=== PATIENT | female | born 1980 | race Caucasian/White ===

== ENCOUNTER 2016-06-05 14:30 | Inpatient (IN) | payer OTHER ==
--- NOTE | ~2016-06-05 | HP ---
Unit #: [id number] #: [id number] Patient: KATERINE GOLDMAN [id number] [address] [place], [place] [address] [id number] I MR#: [id number] NAME: KATERINE GOLDMAN ROOM: 24850 Age: 35 Sex: F Admission Date: 06/05/2016 : 1980 Attending Physician: Ana Stokes M.D. HISTORY AND PHYSICAL CHIEF COMPLAINT Abdominal pain. HISTORY OF PRESENT ILLNESS The patient is a 35-year-old female with a questionable history of Crohn disease per the patient but no records, who presented to the emergency room complaining of abdominal pain. The patient had a similar presentation a few years ago with abdominal pain and GI bleed. The patient stated that patient has had abdominal pain, diarrhea, vomiting, and nausea for the last four days. The patient stated that patient has been vomiting bright red blood and coffee-ground blood associated with bright red-colored blood in the stool. The patient stated that patient has been feeling sick for the last four days. Patient had an upper endoscopy back in 2014 that showed minimal gastritis involving the antrum and no ulcers, AVM, or active bleeding. The patient is being admitted for the above reasons. Patient's hemoglobin is 12.6 and hemoglobin 37.5. Denies any fever, chills, palpitations, or dizziness. PAST MEDICAL HISTORY 1. History of migraines. 2. Questionable self-reported history of Crohn. 3. Depression. 4. Anxiety. 5. Posttraumatic stress disorder. PAST SURGICAL HISTORY 1. Hysterectomy. 2. Laparoscopy x2. HOME MEDICATIONS Tylenol and Phenergan. ALLERGIES ZOFRAN AND PROPOFOL. SOCIAL HISTORY Denies history of smoking cigarettes, alcohol, or any illicit drug abuse. FAMILY HISTORY Coronary artery disease and colon cancer. REVIEW OF SYSTEMS A 14-point review of systems was performed and only pertinent positive findings are described above. The remaining are negative. Unit #: [id number] #: [id number] Patient: KATERINE GOLDMAN PHYSICAL EXAMINATION GENERAL: Patient is lying in bed not in acute distress. VITAL SIGNS: Temperature 98.3, pulse 73, respiratory rate 18, blood pressure 137/86, and saturating 98% on room air. HEENT: Head atraumatic, normocephalic. Pupils equal, round, and reactive to light and accommodation. Dry mucous membranes. NECK: Supple. No JVD. LUNGS: Clear to auscultation bilaterally. No rhonchi, no wheezing. HEART: Regular rate and rhythm. ABDOMEN: Soft. Positive bowel sounds. EXTREMITIES: No cyanosis, no clubbing. NEUROLOGIC: Alert, awake, and oriented. No gross focal motor deficit. DIAGNOSTIC STUDIES LABORATORY: Glucose 82, BUN 16, creatinine 0.8, sodium 140, potassium 3.8, chloride 106, bicarb 24, calcium 9.8, total protein 8.1, albumin 4.8, AST 21, ALT 14, and alkaline phosphatase 46. Amylase 25 and lipase 21. INR is 1. WBC is 7.8, hemoglobin 12.6, hematocrit 37.5, and platelets 173,000. Urine toxicology is positive for benzodiazepine and barbiturates. Urinalysis is negative. ASSESSMENT 1. Gastrointestinal bleed. 2. Hematemesis. 3. Abdominal pain. 4. Self-reported history but undocumented Crohn disease. PLAN Admit the patient to observation with telemetry. Patient has been started on Protonix drip. We will continue the Protonix drip and repeat the CBC and BMP in the morning. Will continue pain medication with morphine. Will have GI to see if patient needs a repeat EGD or just monitor the patient and follow closely. Further recommendations will follow as more lab results are available. Dictated by Oswaldo Root TD: 06/05/2016 17:16 JOB #: [id number] HISTORY AND PHYSICAL X X HISTORY AND PHYSICAL
--- NOTE | ~2016-06-05 | CO ---
Unit #: [id number] #: [id number] Patient: KATERINE CRANE [id number] [address] [address] [id number] Kali MR#: [id number] NAME: KATERINE CRANE ROOM: 301 Age: 35 Sex: F Admission Date: 06/05/2016 : 1980 Attending Physician: Hemant Farias M.D. CONSULTATION REPORT PRIMARY CARE PHYSICIAN The patient does not have any PCP. REASON FOR CONSULTATION GI bleed, history of Crohn disease, nausea, vomiting, diarrhea, and abdominal pain. HISTORY OF PRESENT ILLNESS Ms. Crane is a 35-year-old white female. The patient mentions 4 days history of nausea, vomiting, diarrhea, as well as hematemesis, melena, and diffuse abdominal pain. She says her pain is relentless and she needs frequent IV pain medication. She also mentions to me that she has remote history of Crohn disease, but is not taking any medication and the exact chronology of treatment of Crohn's is not available. The patient has apparently seen Dr. Omalley in the past and I advised her to follow up with him. She, however, wished not to follow up with him. Therefore, I have continued to see her as per her wishes. There is no history of any fever, chills, or rigors. No history of any weight loss. PAST MEDICAL HISTORY Significant for history of migrainous headaches, history of Crohn disease, depression, anxiety, and posttraumatic stress disorder. PAST SURGICAL HISTORY Include hysterectomy and laparoscopy x2. HOME MEDICATIONS Include Phenergan and Tylenol. ALLERGIES She is allergic to Zofran and propofol. SOCIAL HISTORY Does not smoke or drink alcohol or use any street drugs. FAMILY HISTORY Significant for coronary artery disease and colon cancer. REVIEW OF SYSTEMS Detailed review of organ systems does not reveal any recent weight loss. No history of fever, chills, or rigors. No history of seizures, chest pain, or syncope. No history of cough, expectoration, or hemoptysis. No history of dysuria, hematuria, or pyuria. No history of focal seizures or Unit #: [id number] #: [id number] Patient: KATERINE CRANE extremity weakness. PHYSICAL EXAMINATION GENERAL: She is awake, alert, and oriented, and appears to be uncomfortable and in pain. Appears well nourished. VITAL SIGNS: Stable with a temperature of 98.4, pulse is 67 per minute and regular, respiratory rate is 19, and blood pressure is 108/77. She weighs 169 pounds. HEAD AND NECK: She has no pallor, icterus, lymphadenopathy, or peripheral edema. CARDIOVASCULAR: Normal heart sounds. No murmurs. LUNGS: Auscultation of the lungs reveals normal breath sounds. Good air entry. ABDOMEN: Soft with minimal tenderness in left and right lower quadrant of the abdomen. No rigidity, rebound, or guarding is felt. Liver and spleen are not palpable. Bowel sounds normal. DIAGNOSTIC STUDIES LABORATORY RESULTS: Lab evaluation shows a normal white count, hemoglobin is 10.9, baseline hemoglobin yesterday was 12.6. BUN, creatinine, and electrolytes are all normal. LFTs are also normal. CLINICAL IMPRESSION The patient with history of hematemesis, melena, diffuse abdominal pain, previous history of Crohn's along with nausea, vomiting, diarrhea. It would be irrelevant to proceed the panendoscopy in this patient to confirm the diagnosis and to find the reason for anemia as well as drop in hemoglobin. The pros and cons of upper endoscopy and a colonoscopy were discussed with the patient and she was reassured. The procedure will be done later today. Thank you for asking me to see Ms. Crane. I appreciate the consult. Dictated by... Oswaldo Carrizales/jennifer TD: 06/18/2016 20:12 JOB #: [id number] CONSULTATION REPORT X Dada Haywood MD CONSULTATION REPORT
--- NOTE | ~2016-06-05 | A ---
[facility] Nutrition Therapy DATE: 06/06/16 Patient: KATERINE GOLDMAN Physician: AYANA Address: [address] Room/Bed: [address] [place] [address], Zip: [place] [address] Admit Date: 06/05/16 Date of : [birth year] Height: 5 8 Weight: 169 77.11 NUTRITIONAL ASSESSMENT: REASON: 3 POINTS NUTRITION SCREEN RISK: 20# WEIGHT LOSS 35 YO FEMALE ADMITTED FOR ABDOMINAL PAIN, GI BLEED PMH: EtOH abuse, Crohn's disease (self-reported), migraines, depression/ anxiety, PTSD Anthropometrics: Ht: 68" Wt: 76.8 kg BMI: 25.7 Labs: Lipase 21 Meds: Phenergan, reglan, D5%, protonix, NaCl I/O & Bowel function: 478/2, last BM 06/06, ? bloody stool Skin Integrity: Scar- abdomen Edema: none noted Diet: Clear liquids Assessment: Chart reviewed, events noted. Pt admitted for abdominal pain, possible GI bleed. Pt is currently on clear liquids, receiving gatorade, then will be NPO for EGD/ colonoscopy. RD spoke with the pt at bedside, as pt received 3 points nutrition screen risk for weight loss. Pt reports that she has actually gain a couple pounds recently. Pt reports that her weight fluctuates due to Crohns disease. Pt reports weight range of 165-180# (currently 168#). Pt apparently eats well at home, following a low fiber diet, avoiding processed foods, and limiting her dairy intake. Pt was given diet education during a previous admission 05/02/16. Pt would like vanilla Ensure supplements once her diet advances. Pt denied have any nutritional concerns or questions at this time. Dx: Inadequate protein-energy intake RT clinical condition AEB clear liquid diet, will be NPO for EGD. Intervention: 1. Clear liquid diet 2. Advance diet as tolerated following EGD Monitoring, Evaluation and Goals: 1. Oral intake; tolerate >50-75% meals and supplements 2. Labs; WNL 3. Weight; prevent unintentional weight loss [facility] Nutrition Therapy DATE: 06/06/16 Patient: KATERINE GOLDMAN Physician: AYANA Address: [address] Room/Bed: [address] [place] [address], Zip: [place] [address] Admit Date: 06/05/16 Date of : [birth year] Height: 5 8 Weight: 169 77.11 4. GI; promote regular GI function Recommendations: 1. Continue clear liquid diet as tolerated. 2. After EGD/ colonoscopy, advance the pt to a low fiber diet as tolerated (if appropriate pending findings). 3. Once the pt's diet advances, add vanilla Ensure BID for supplemental nutrition. Pt is at mild nutritional risk. RD will follow up per protocol. Respectfully, ORQUIDEA BABCOCK RD, LD [employer] [facility] cc: client file
--- NOTE | ~2016-06-05 | DS ---
Unit #: [id number] #: [id number] Patient: KATERINE CRANE [id number] [address] [address] [id number] I MR#: [id number] NAME: KATERINE CRANE ROOM: 301 Age: 35 Sex: F Admission Date: 06/05/2016 : 1980 Discharge Date: 06/08/2016 Attending Physician: Hemant Farias M.D. Primary Care Physician: No Primary Care Physician DISCHARGE SUMMARY PRINCIPAL DIAGNOSES ON DISCHARGE 1. Nausea, vomiting, abdominal pain secondary to viral gastroenteritis. 2. . SECONDARY DIAGNOSES 1. Self reported history of Crohn disease. 2. History of migraines. 3. History of depression, anxiety and posttraumatic stress disorder. 4. Self reported history of hematemesis, not confirmed. CONSULTS GI, Dr. Haywood. PROCEDURES EGD and colonoscopy showed no acute findings. No signs of bleeding. HISTORY OF PRESENT ILLNESS/BRIEF HOSPITAL COURSE Ms. Crane is a 35-year-old female who presented to the emergency room complaining of approximately 4 days of nausea, vomiting and abdominal pain, stating that she had vomited bright red blood and coffee ground colored blood and had noticed bright red blood in the stools, as well. On admission she was found with a hemoglobin of 12.6, a BUN of 16, creatinine of 0.8. The patient was admitted to the hospital and was placed on a Protonix drip. Her CBC was monitored, and GI was consulted. Her hemoglobin varied minimally, going down from 12.6 to 10.1 and then back up again to 11.8. The patient underwent the above-mentioned procedures performed by GI, and there were no signs suggestive of Crohn disease. Biopsies were obtained. Results are pending. The patient was started on Phenergan p.r.n. for nausea and requested IV pain medications, as well. This was provided to her initially but, given the lack of clear cause of her symptoms, these medications were deescalated. The patient also complained of watery diarrhea; however, she failed to provide with a stool sample, and there was no objective evidence of diarrhea during her hospitalization. There was no evidence of hematemesis either, and when requested to notify when vomiting to quantify the emesis, the patient stated that she was mainly having dry heaves. Today the patient is considered to be stable enough to be discharged home, has tolerated a liquid diet and requested to advance to a full diet this morning. We changed her Phenergan to p.o. as needed. A CT scan of the Unit #: [id number] #: [id number] Patient: KATERINE CRANE abdomen and pelvis was planned for today; however, the patient refused to have an IV replaced in order to get the test done, and this was communicated to Dr. Haywood of GI, who stated that the patient was clear for discharge if she refused CT of the abdomen. DISPOSITION Home. CONDITION Improved. MEDICATIONS UPON DISCHARGE 1. Phenergan 25 mg p.o. q.4 hours p.o. p.r.n. nausea. 2. Wellbutrin 300 mg p.o. b.i.d. 3. Fioricet p.r.n. migraines. 4. Loperamide OTC p.r.n. diarrhea. FOLLOWUP The patient is to follow up with her primary care practitioner in 2 weeks and with GI in 4 weeks. Dictated by... Darian Orr M.D. NURYS/ghassan TD: 06/09/2016 13:19 JOB #: [id number] DISCHARGE SUMMARY X X DISCHARGE SUMMARY
[2016-06-05 14:13] LABS: BASOPHIL% 0.5 % (0-2.5); EOSINOPHIL# 0.1 X10e3 (0-0.7); EOSINOPHIL% 0.8 % (0.0-7.0); HEMATOCRIT 37.5 % (35.0-45.0); HEMOGLOBIN 12.6 gm/dL (12.0-16.0); LYMPHOCYTE# 2.3 X10e3 (1.0-3.5); LYMPHOCYTE% 28.9 % (17.0-45.0); MEAN CELL VOLUME 94.3 FL (83-96); MEAN CORPUSCULAR HEMOGLOBIN 31.8 PG (28-34); MEAN CORPUSCULAR HGB CONC 33.7 g/dL (30-36); MEAN PLATELET VOLUME 9.4 FL (6.5-11.5); MONOCYTE# 0.4 X10e3 (0-1.0); MONOCYTE% 5.4 % (3.0-12.0); NEUTROPHIL% 64.4 % (40-75); PLATELET COUNT 173 X10e3 (140-420); RED BLOOD COUNT 3.98 X10e (3.90-5.30); RED CELL DISTRIBUTION WIDTH 15.2 % (11.0-15.5); WHITE BLOOD COUNT 7.8 X10e3 (4.0-10.5)
[2016-06-05 14:14] LABS: DIFF IND NO
[2016-06-05 14:23] LABS: PARTIAL THROMBOPLASTIN TIME 25.6 SECONDS (23.5-31.3); PROTHROMBIN TIME (PATIENT) 10.1 SECONDS (9.6-11.5)
[~2016-06-05 14:30] MED LIST: FLORINEF0.1 M1 PO; LEVSIN0.125 M1 PO; NO MEDICATIONS; PROTONIX PO
[2016-06-05 14:37] LABS: ALBUMIN SERUM 4.8 g/dL (3.5-5.0); ALKALINE PHOSPHATASE 46 U/L (32-92); ALT (SGPT) 14 U/L (10-40); AMYLASE 25 U/L (0-46); AST (SGOT) 21 U/L (10-42); BILIRUBIN,TOTAL 0.7 mg/dL (0.2-2.0); BLOOD UREA NITROGEN 16 mg/dL (9-23); CALCIUM SERUM 9.8 mg/dL (8.4-10.2); CARBON DIOXIDE 24 mmol/L (22-31); CHLORIDE 106 mmol/L (100-111); CREATININE SERUM 0.8 mg/dL (0.6-1.4); GLOM FILT RATE Estimated ABOVE60 mL/min (>60); GLUCOSE FASTING 82 mg/dL (70-110); LIPASE 21 U/L (22-51); POTASSIUM 3.8 mmol/L (3.5-5.1); PROTEIN TOTAL SERUM 8.1 g/dL (6.0-8.3); SODIUM 140 mmol/L (135-145)
[2016-06-05 14:44] LABS: BILIRUBIN, DIRECT <0.1 mg/dL (0.0-0.2); BILIRUBIN,INDIRECT 0.6 mg/dL (0.0-0.9)
[2016-06-05] MEDS ORDERED: FIORICET 50-301 EACH PO (17:46)
[2016-06-05] MEDS ORDERED: PHENERGAN25 M1 PO (17:46)
[2016-06-05] MEDS ORDERED: BUPROPION XL300 MG PO (17:47)
[2016-06-06 08:13] LABS: HEMOGLOBIN 10.9 gm/dL (12.0-16.0); MEAN CELL VOLUME 95.9 FL (83-96); MEAN CORPUSCULAR HEMOGLOBIN 31.8 PG (28-34); MEAN CORPUSCULAR HGB CONC 33.1 g/dL (30-36); MEAN PLATELET VOLUME 10.3 FL (6.5-11.5); RED BLOOD COUNT 3.44 X10e (3.90-5.30); RED CELL DISTRIBUTION WIDTH 15.3 % (11.0-15.5); WHITE BLOOD COUNT 8.5 X10e3 (4.0-10.5)
[2016-06-06 08:40] LABS: BLOOD UREA NITROGEN 9 mg/dL (9-23); CALCIUM SERUM 9.1 mg/dL (8.4-10.2); CARBON DIOXIDE 23 mmol/L (22-31); CHLORIDE 109 mmol/L (100-111); CREATININE SERUM 0.6 mg/dL (0.6-1.4); GLOM FILT RATE Estimated ABOVE60 mL/min (>60); GLUCOSE FASTING 85 mg/dL (70-110); POTASSIUM 3.8 mmol/L (3.5-5.1); SODIUM 140 mmol/L (135-145)
[2016-06-07 05:44] LABS: HEMATOCRIT 35.3 % (35.0-45.0); HEMOGLOBIN 11.8 gm/dL (12.0-16.0); MEAN CORPUSCULAR HEMOGLOBIN 32.1 PG (28-34); MEAN CORPUSCULAR HGB CONC 33.4 g/dL (30-36); MEAN PLATELET VOLUME 10.1 FL (6.5-11.5); RED BLOOD COUNT 3.68 X10e (3.90-5.30); RED CELL DISTRIBUTION WIDTH 15.3 % (11.0-15.5); WHITE BLOOD COUNT 7.6 X10e3 (4.0-10.5)
[2016-06-07 06:39] LABS: ALBUMIN SERUM 4.2 g/dL (3.5-5.0); ALKALINE PHOSPHATASE 42 U/L (32-92); ALT (SGPT) 13 U/L (10-40); AST (SGOT) 16 U/L (10-42); BLOOD UREA NITROGEN 11 mg/dL (9-23); BUN/CREATININE RATIO 12.22; CARBON DIOXIDE 26 mmol/L (22-31); CHLORIDE 108 mmol/L (100-111); CREATININE SERUM 0.9 mg/dL (0.6-1.4); GLOM FILT RATE Estimated ABOVE60 mL/min (>60); GLUCOSE FASTING 75 mg/dL (70-110); POTASSIUM 3.6 mmol/L (3.5-5.1); SODIUM 141 mmol/L (135-145)
[2016-06-07 06:40] LABS: BILIRUBIN,TOTAL <0.1 mg/dL (0.2-2.0)
[2016-06-08] MEDS ORDERED: LOPERAMIDE HCL2 M1 PO (10:42)
== END 2016-06-08 12:30 | disposition home or self-care (01) | DRG 392 ==
LOC: CED 14:30 → CEDOF 16:20 → C3A PCU 17:30
PROVIDERS: Emergency Medicine; Internal Medicine; Internal Medicine Gastroenterology
PROC: 0DB98ZX Excision of Duodenum, Via Natural or Artificial Opening Endoscopic, Diagnostic (ICD-10-PCS; principal; 2016-06-06 15:26)
PROC: 0DBE8ZX Excision of Large Intestine, Via Natural or Artificial Opening Endoscopic, Diagnostic (ICD-10-PCS; 2016-06-06 15:26)
DX: A08.4 Viral intestinal infection, unspecified (principal); F32.9 Major depressive disorder, single episode, unspecified; F41.9 Anxiety disorder, unspecified; F43.10 Post-traumatic stress disorder, unspecified; Z90.710 Acquired absence of both cervix and uterus
CPT/HCPCS: 36415; 80048; 80053; 80076; 82150; 83690; 85025; 85027; 85610; 85730; 88305; 94760; 96361; 96374; 96375; 99291; C9113; J1650; J2250; J2270; J2550; J2765; J2930; J3010

== ENCOUNTER 2016-06-09 23:30 | Emergency (ER) | payer OTHER ==
--- NOTE | ~2016-06-09 | CR20 ---
[facility] A Service of [facility] & [facility] RADIOLOGY TEXT RESULTS PATIENT: KATERINE GOLDMAN LOCATION: [facility] : [birth year] UNIT #: [id number] AGE: [address]: Rufus Abraham MD SEX: F ORDER DR: [id number] [facility] [address] [place], [place] [address] [id number] E MR#: [id number] Acc #: [id number] NAME: KATERINE GOLDMAN : 1980 SEX: F STUDY DATE/TIME: 06/09/2016 23:36 UNIT: [facility] ROOM: STUDY DESCRIPTION: CR Ankle Min 3 Views Lt Attending Physician: Er Doctor [facility] Ordering Physician: Rufus Abraham M.D. Primary Care Physician: Primary Care Physician No MEDICAL IMAGING REPORT This report is preliminary unless electronic signature is present EXAM Left ankle, 3 views COMPARISON None. INDICATION 35-year-old female with left lateral ankle pain and swelling after rolling injury of the ankle tonight. FINDINGS Bones are anatomically aligned. There is a small nondisplaced fracture through the tip of the lateral malleolus. IMPRESSION Nondisplaced acute fracture through the tip of the lateral malleolus. No dislocation. Dictated by... Dylan Echols M.D. THIS IS AN ELECTRONICALLY VERIFIED REPORT Dylan Echols M.D. at 06/11/2016 8:49 AM OLLIE/lópez TD: 06/10/2016 06:28 JOB #: [id number] MEDICAL IMAGING REPORT COPY
--- NOTE | ~2016-06-09 | OR ---
Unit #: [id number] #: [id number] Patient: KATERINE GOLDMAN [id number] [address] [place], [place] [address] [id number] E MR#: [id number] NAME: KATERINE GOLDMAN ROOM: Date of Procedure: 06/06/2016 Admission Date: 06/09/2016 Surgeon: Dada Haywood M.D. : 1980 Attending Physician: Rufus Abraham M.D. Primary Care Physician: Primary Care Physician No OPERATIVE REPORT PRIMARY CARE PHYSICIAN Hemant Farias M.D. PREOPERATIVE DIAGNOSES Nausea, vomiting, and diarrhea as well as history of abdominal pain. The patient mentions history of bright red blood in the vomiting as well as melena and hematochezia. She also gives a remote history of "Crohn disease." PROCEDURES PERFORMED Upper gastrointestinal endoscopy and biopsy as well as colonoscopy with biopsies. POSTOPERATIVE DIAGNOSES 1. For upper endoscopy, completely normal examination up to third part of duodenum. Biopsies obtained from the deep descending duodenal folds to look for any evidence of partial villous atrophy or celiac disease. 2. For colonoscopy, completely normal examination up to terminal ileum. The quality of the prep was excellent. No mucosal abnormalities whatsoever present. Random biopsies were obtained from throughout the colon to rule out microscopic or collagenous colitis. CLINICAL IMPRESSION The patient has no evidence of any GI pathology, has no evidence of Crohn disease or colitis or gastritis. The most likely etiology of the presentation is infectious enteritis, which is self-limited. RECOMMENDATIONS Allow diet as tolerated. The patient will be discharged home from GI standpoint. SEDATION USED MAC. DESCRIPTION OF PROCEDURE Following detailed explanation of potential risks and complications of an upper endoscopy and a colonoscopy, namely perforation, bleeding, and complications related to sedation, the patient was brought to GI lab and laid in the left lateral decubitus position. Lubricated tip of the Olympus video upper endoscope was passed through the bite block into the proximal esophagus under direct vision. The entire esophageal mucosa was examined and appeared normal. Z-line was nicely demarcated, there being Unit #: [id number] #: [id number] Patient: KATERINE GOLDMAN no esophagitis or hiatus hernia. The scope was then advanced into the gastric cavity and the latter was insufflated. Mucosa of the fundus, body, and antrum was examined and appeared unremarkable. Pylorus was intubated with visualization of the normal duodenal bulb and second and third part of the duodenum. Upon withdrawal and retroflexion, incisura, cardia, and greater curve examined and no additional findings noted. Biopsies obtained from the deep descending duodenal folds to look for any evidence of partial villous atrophy or celiac disease. The scope was then withdrawn in the distal esophagus. Entire esophageal mucosa was examined all the way up to pharynx. No additional findings noted. The scope was then withdrawn. The examination table was then turned by 180 degrees and the patient positioned for a colonoscopy. A digital rectal examination was performed, which was normal. Lubricated tip of the Olympus video colonoscope was inserted through the anus and advanced under direct vision. The scope was advanced and passed up to sigmoid into descending colon. No diverticula were noticed in this area. The scope tip was then navigated all the way up to cecum with visualization of ileocecal valve and the appendiceal orifice. Preparation was excellent with good visualization and photodocumentation was obtained. Last several inches of the terminal ileum also visualized after intubation of the ileocecal valve and appeared normal. Successive segments of the colonic mucosa were examined upon withdrawal and appeared unremarkable. There being no polyps, mass lesions, AVMs, or diverticula. The patient did not have any internal hemorrhoids at anal verge. Multiple random colonic biopsies obtained from throughout the colon to rule out microscopic or collagenous colitis. The scope was then withdrawn. The patient returned to recovery area. She tolerated the procedure without any postprocedure complications. Dictated by... Oswaldo Carrizales TD: 06/12/2016 05:55 JOB #: [id number] OPERATIVE REPORT X Dada Haywood MD X PROCEDURE OPERATIVE NOTE
--- NOTE | ~2016-06-09 | CR126 ---
[facility] A Service of [facility] & [facility] RADIOLOGY TEXT RESULTS PATIENT: KATERINE GOLDMAN LOCATION: [facility] : [birth year] UNIT #: [id number] AGE: [address]: Rufus Abraham MD SEX: F ORDER DR: [id number] [facility] [address] [place], [place] [address] [id number] E MR#: [id number] Acc #: [id number] NAME: KATERINE GOLDMAN : 1980 SEX: F STUDY DATE/TIME: 06/09/2016 23:34 UNIT: [facility] ROOM: STUDY DESCRIPTION: CR Foot Complete Min 3 View Lt Attending Physician: Er Doctor [facility] Ordering Physician: Rufus Abraham M.D. Primary Care Physician: Primary Care Physician No MEDICAL IMAGING REPORT This report is preliminary unless electronic signature is present EXAM Left foot, 3 views COMPARISON 3 views of the left ankle on the same date. INDICATION 35-year-old female with left lateral foot pain and swelling after rolling injury of the foot tonight. FINDINGS Bones are anatomically aligned. Incidental note of an os peroneum, a normal anatomic variant. No evidence of acute fracture. IMPRESSION No evidence of acute fracture or dislocation of the left foot. Dictated by... Dylan Echols M.D. THIS IS AN ELECTRONICALLY VERIFIED REPORT Dylan Echols M.D. at 06/11/2016 8:49 AM OLLIE/lópez TD: 06/10/2016 06:17 JOB #: [id number] MEDICAL IMAGING REPORT COPY
[~2016-06-09 23:30] MED LIST changes: +BUPROPION XL300 MG PO; +FIORICET 50-301 EACH PO; +LOPERAMIDE HCL2 M1 PO; +PHENERGAN25 M1 PO
[2016-06-10 00:28] LABS: BASOPHIL# 0.1 X10e3 (0-0.3); EOSINOPHIL# 0.3 X10e3 (0-0.7); EOSINOPHIL% 4.4 % (0.0-7.0); HEMATOCRIT 33.6 % (35.0-45.0); HEMOGLOBIN 11.2 gm/dL (12.0-16.0); LYMPHOCYTE# 2.9 X10e3 (1.0-3.5); LYMPHOCYTE% 48.3 % (17.0-45.0); MEAN CELL VOLUME 93.6 FL (83-96); MEAN CORPUSCULAR HEMOGLOBIN 31.2 PG (28-34); MEAN CORPUSCULAR HGB CONC 33.4 g/dL (30-36); MEAN PLATELET VOLUME 10.4 FL (6.5-11.5); MONOCYTE# 0.5 X10e3 (0-1.0); MONOCYTE% 7.8 % (3.0-12.0); NEUTROPHIL# 2.3 X10e3 (1.5-7.1); NEUTROPHIL% 38.5 % (40-75); PLATELET COUNT 168 X10e3 (140-420); RED BLOOD COUNT 3.59 X10e (3.90-5.30); WHITE BLOOD COUNT 5.9 X10e3 (4.0-10.5)
[2016-06-10 00:31] LABS: DIFF IND NO
[2016-06-10 00:50] LABS: ALBUMIN SERUM 4.2 g/dL (3.5-5.0); ALKALINE PHOSPHATASE 55 U/L (32-92); ALT (SGPT) 12 U/L (10-40); AST (SGOT) 15 U/L (10-42); BILIRUBIN, DIRECT 0.1 mg/dL (0.0-0.2); BILIRUBIN,INDIRECT 0.2 mg/dL (0.0-0.9); BILIRUBIN,TOTAL 0.3 mg/dL (0.2-2.0); BLOOD UREA NITROGEN 15 mg/dL (9-23); BUN/CREATININE RATIO 18.75; CALCIUM SERUM 9.6 mg/dL (8.4-10.2); CARBON DIOXIDE 25 mmol/L (22-31); CHLORIDE 106 mmol/L (100-111); CREATININE SERUM 0.8 mg/dL (0.6-1.4); GLOM FILT RATE Estimated ABOVE60 mL/min (>60); GLUCOSE FASTING 88 mg/dL (70-110); LIPASE 18 U/L (22-51); PROTEIN TOTAL SERUM 7.3 g/dL (6.0-8.3); SODIUM 140 mmol/L (135-145)
== END 2016-06-10 02:20 | disposition home or self-care (01) ==
LOC: CED 23:30
PROVIDERS: Emergency Medicine
DX: S82.65XA Nondisplaced fracture of lateral malleolus of left fibula, initial encounter for closed fracture (principal); K92.0 Hematemesis; K50.90 Crohn's disease, unspecified, without complications; G43.909 Migraine, unspecified, not intractable, without status migrainosus; Z90.710 Acquired absence of both cervix and uterus; Z98.890 Other specified postprocedural states; Z88.8 Allergy status to other drugs, medicaments and biological substances; X58.XXXA Exposure to other specified factors, initial encounter; Y93.89 Activity, other specified; Y92.9 Unspecified place or not applicable
CPT/HCPCS: 29515; 36415; 73610; 73630; 80048; 80076; 83690; 85025; 96374; 96375; 96376; 99284; C9113; J2270; J2550

== ENCOUNTER → 2016-09-29 | Outpatient (CLI) | payer OTHER ==
--- NOTE | ~2016-09-29 | CT4 ---
[facility] A Service of [facility] RADIOLOGY TEXT RESULTS PATIENT: KATERINE GOLDMAN [facility] : [birth year] UNIT #: [id number] AGE: [address]: Stevie Omalley MD SEX: F ORDER DR: [id number] [facility] [address] [place], [place] [address] [id number] O MR#: [id number] Acc #: [id number] NAME: KATERINE GOLDMAN : 1980 SEX: F STUDY DATE/TIME: 09/29/2016 15:14 UNIT: [facility] ROOM: STUDY DESCRIPTION: CT Abd and Pelv Wo Cont Attending Physician: Stevie Omalley M.D. Referring Physician: Stevie Omalley M.D. Ordering Physician: Stevie Omalley M.D. Primary Care Physician: Primary Care Physician No MEDICAL IMAGING REPORT This report is preliminary unless electronic signature is present EXAM CT of the abdomen and pelvis without contrast media, 09/29 COMPARISON 09/11/2016 HISTORY Right lower quadrant pain for months, worse over the last month, complaining of diarrhea, nausea and vomiting. TECHNIQUE Axial imaging of the abdomen and pelvis was performed without contrast media. This CT exam was performed with one or more of the following radiation dose reduction techniques: Automatic exposure control, adjustment of mA and/or kV according to patient size, and iterative reconstruction. FINDINGS Lung bases are unremarkable. Liver, spleen, gallbladder, pancreas, adrenal glands and both kidneys are normal and the appendix is normal. Terminal ileum is normal. No dilated or thickened loops of bowel are identified. Uterus is absent. There is a right ovarian cyst present measuring 1.9 cm in diameter. CONCLUSION No acute findings in the abdomen or pelvis. Normal appendix. No evidence of renal or obstructing ureteral stones. Incidental 1.9 cm right ovarian cyst. Status post hysterectomy. Dictated by... Haseeb French M.D. [facility] A Service of [facility] RADIOLOGY TEXT RESULTS PATIENT: KATERINE GOLDMAN [facility] [birth year] UNIT #: [id number] AGE: [address]: Stevie Omalley MD SEX: F ORDER DR: THIS IS AN ELECTRONICALLY VERIFIED REPORT Haseeb French M.D. at 09/30/2016 7:13 AM MARCIAL/hank TD: 09/29/2016 21:01 JOB #: [id number] MEDICAL IMAGING REPORT Page 1 of 1 COPY
[2016-09-29 15:00] LABS: HEMATOCRIT 38.2 % (35.0-45.0); HEMOGLOBIN 12.4 gm/dL (12.0-16.0); MEAN CELL VOLUME 96.4 FL (83-96); MEAN CORPUSCULAR HEMOGLOBIN 31.3 PG (28-34); MEAN CORPUSCULAR HGB CONC 32.5 g/dL (30-36); MEAN PLATELET VOLUME 10.6 FL (6.5-11.5); RED BLOOD COUNT 3.96 X10e (3.90-5.30); RED CELL DISTRIBUTION WIDTH 15.4 % (11.0-15.5)
[2016-09-29 15:35] LABS: FOLATE (FOLIC ACID) 12.5 ng/mL (>5.8)
[2016-09-29 18:31] LABS: ALBUMIN SERUM 4.4 g/dL (3.5-5.0); BILIRUBIN,TOTAL 0.2 mg/dL (0.2-2.0); BUN/CREATININE RATIO 22.5; CALCIUM SERUM 9.3 mg/dL (8.4-10.2); CREATININE SERUM 0.4 mg/dL (0.6-1.4); GLOM FILT RATE Estimated 136.9 mL/min (>60); POTASSIUM 3.9 mmol/L (3.5-5.1); PROTEIN TOTAL SERUM 7.4 g/dL (6.0-8.3)
[2016-10-01 20:52] LABS: GLIADIN IGA AB 8 Units (<20); GLIADIN IGG AB 6 Units (<20); RETICULIN IGA SCREEN W/REFLEX Negative (Negative); TISSUE TRANSGLUTAMINASE IGA AB 1 U/mL (<4)
== END | disposition home or self-care (01) ==
LOC: CCAT 13:20
PROVIDERS: Internal Medicine
DX: R10.31 Right lower quadrant pain (principal); R19.7 Diarrhea, unspecified; Z90.710 Acquired absence of both cervix and uterus
CPT/HCPCS: 36415; 74176; 80053; 82150; 82607; 82728; 82746; 83516; 83540; 83690; 84466; 85027; 86255

== ENCOUNTER 2016-11-07 17:51 | Observation (INO) | payer OTHER ==
[~2016-11-07] VITALS: Ht 172.7 cm; Wt 66.2 kg
--- NOTE | ~2016-11-07 | HP ---
Unit #: [id number] #: [id number] Patient: KATERINE GOLDMAN [id number] [facility] [address] [address] [facility]. [place], [place] [address] [id number] I MR#: [id number] NAME: KATERINE GOLDMAN ROOM: 37029 Age: 35 Sex: F Admission Date: 11/07/2016 : 1980 Attending Physician: Boy Butler M.D. Primary Care Physician: No Primary Care Physician HISTORY AND PHYSICAL REVISED REPORT CHIEF COMPLAINT Nausea, vomiting, and abdominal pain, hematemesis, and bright red blood in vomiting. DISCUSSION This is a 35-year-old female who has a self-reported history of Crohn disease though she had a colonoscopy in May 2016, which was normal. She has anxiety, depression, migraines, and history of endometriosis requiring three laparoscopic surgeries. She had an admission here in [facility] in May 2016 with nausea, vomiting, and abdominal pain. At that time, she had EGD, which was normal. She presented today to the emergency room with chief complaining of nausea, vomiting, diffuse abdominal pain and she said she had seen bright red blood in the vomiting x4 episodes today. She says she has been feeling good for one month's period of time, losing 42 pounds and recently decrease p.o. intake, loss of appetite. She is seeing, also, Dr. Omalley as an outpatient recently, GI. She denies chest pain, cough, fever, or other complaints. PAST MEDICAL HISTORY 1. History of self-reported history of Crohn disease, though she had a colonoscopy in May 2016, which was normal. 2. Anxiety, depression/posttraumatic stress disorder. 3. History of endometriosis. PAST SURGICAL HISTORY 1. History of hysterectomy. 2. Laparoscopy x3. 3. EGD and colonoscopy in May 2016, which were normal. ALLERGIES She is allergic to Zofran and mesalamine. MEDICATIONS FROM HOME 1. Phenergan 25 mg q.6 hours p.r.n. 2. Fioricet 1 tablet q.4 hours p.r.n. 3. Wellbutrin XL 150 mg twice a day. REVIEW OF SYSTEMS Negative, except history of present illness. PHYSICAL EXAMINATION GENERAL APPEARANCE: 35-year-old female lying in the bed comfortably not Unit #: [id number] #: [id number] Patient: KATERINE GOLDMAN in any distress. VITAL SIGNS: Current vitals are following: Temperature 97.8, heart rate 59, respiratory rate 16, and blood pressure 213/86. HEENT: Pupils equal and reactive to light. Head is normocephalic and atraumatic. NECK: Supple. No JVD. HEART: S1 and S2. Regular rate and rhythm. LUNGS: Clear to auscultation bilaterally. No rhonchi. No wheezing. ABDOMEN: Soft, nontender, and nondistended. Bowel sounds positive. EXTREMITIES: Inspection normal. No cyanosis, no clubbing, and no edema. NEUROLOGICAL: No focal neurologic deficit. PSYCH: Normal mood and affect. SKIN: Warm and dry. DIAGNOSTIC STUDIES LABORATORY: Sodium 140, potassium 3.3, chloride 103, CO2 29, glucose 99, BUN 9, creatinine 0.7. LFTs within normal limits. Lipase 27 and amylase 20. H. pylori negative. INR is 1. White count 6, hemoglobin 13, hematocrit 39, and platelets are 189. ASSESSMENT AND PLAN 1. Nausea, vomiting, hematemesis, and abdominal pain. Normal EGD in May 2016. Will keep the patient on clear liquid diet, IV Protonix, and morphine. She had a HIDA scan in 2014, which was also normal. Will ask Dr. Omalley to evaluate. I will go ahead and get ultrasound of gallbladder also. 2. History of migraine. 3. Anxiety, depression, posttraumatic stress disorder. 4. History of self-reported Crohn disease. 5. History of endometriosis with multiple laparoscopies in the past. 6. Deep venous thrombosis prophylaxis. Will place the patient on SCDs. Dictated by Oswaldo Parks/sharan TD: 11/08/2016 08:32 JOB #: [id number] CC: Mary/luis Please Delete HISTORY AND PHYSICAL Page 1 of 1 X X HISTORY AND PHYSICAL
--- NOTE | ~2016-11-07 | DS ---
Unit #: [id number] #: [id number] Patient: KATERINE CRANE [id number] [address] [address] [id number] I MR#: [id number] NAME: KATERINE CRANE ROOM: 57 Age: 35 Sex: F Admission Date: 11/07/2016 : 1980 Discharge Date: 11/10/2016 Attending Physician: Nova Aguiar M.D. Primary Care Physician: No Primary Care Physician DISCHARGE SUMMARY PRINCIPAL DIAGNOSES 1. Intractable abdominal pain with unidentified etiology. 2. Nausea and vomiting recurrent. 3. Forty pound weight loss of undetermined etiology. 4. Severe anxiety with depression. 5. Migraine headaches. CONSULTANTS Dr. Omalley, gastroenterology. DIAGNOSTIC DATA IMAGING: Right upper quadrant ultrasound on 11/07/2016 with common bile duct dilatation of 7 mm. No obstructive etiology noted. No evidence of cholecystitis or gallstones. CLINICAL HISTORY/HOSPITAL COURSE Ms. Crane is a 35-year-old female who presented to the emergency department with intractable abdominal pain, nausea and vomiting and reports of hematemesis. Please refer to history and physical for further details. Workup in the emergency department was unremarkable and the patient was admitted for further evaluation. I will note hemoglobin was stable at 13 upon presentation and the patient had no evidence of leukocytosis. The patient was admitted and placed on a clear liquid diet. The patient was seen in consultation by Dr. Omalley. Right upper quadrant ultrasound was done, revealing a small amount of common bile duct dilatation for which HIDA scan was ultimately ordered. However, the patient this morning is adamant that she wants to have the test done as an outpatient. I will note, workup otherwise during this hospitalization and prior hospitalization have been unremarkable. The patient does have some significant anxiety which I suspect is playing a role in all of her symptoms, including most likely her weight loss. She can be seen regarding her weight loss by Dr. Garcia as an outpatient. The patient will be discharged home today after discussion with Dr. Omalley. DISCHARGE CONDITION Stable. DISPOSITION Discharge to home. Unit #: [id number] #: [id number] Patient: KATERINE CRANE DISCHARGE MEDICATIONS 1. Fioricet 50/300/40 mg 1-2 tablets q.4 h. p.r.n. migraine. 2. Wellbutrin XL 150 mg b.i.d. 3. Phenergan 25 mg p.o. q.6 h. p.r.n. nausea. DIET The patient is instructed to follow a regular diet. She can increase her activity as tolerated. FOLLOWUP 1. The patient will follow up with Shahram in one month. 2. The patient is to call Dr. Garcia's office to set up an outpatient evaluation regarding her weight loss within the next two weeks. Dictated by... Nova Aguiar M.D. GARTH/melvin TD: 11/12/2016 08:58 JOB #: [id number] DISCHARGE SUMMARY Page 1 of 1 X Nova Aguiar MD X DISCHARGE SUMMARY
--- NOTE | ~2016-11-07 | CO ---
Unit #: [id number] #: [id number] Patient: KATERINE CRANE [id number] [address] [place], [place] [address] [id number] I MR#: [id number] NAME: KATERINE CRANE ROOM: 577 Age: 35 Sex: F Admission Date: 11/07/2016 : 1980 Attending Physician: Nova Aguiar M.D. Primary Care Physician: Primary Care Physician No Consultation Date: 11/09/2016 CONSULTATION REPORT REASON FOR CONSULTATION Nausea, vomiting, and abdominal pain. HISTORY OF PRESENTING ILLNESS Ms. Crane is a 35-year-old female. She was admitted with complaints of recurrent nausea and vomiting, which is unrelated to food. She is however afraid to eat and has lost 40 pounds. She also complains of abdominal pain, which is vague. She says it is also on her back and goes all the way to the neck and back of the head. It is constant again. Does not seem to have any relation to the food. She has seen blood in her vomiting as well as stool on occasion. She has no fever, no chills. She has no cough or expectoration. PAST MEDICAL HISTORY She says she has history of Crohn disease, a colonoscopy done in May shows normal colon. CT scan recently shows no evidence of any IBD. History of anxiety and PTSD. She is status post hysterectomy. Laparoscopy 3 times for endometriosis, EGD and colonoscopy in May of this year. ALLERGIES Zofran. MEDICATIONS At home included Wellbutrin, Fioricet, and Phenergan. REVIEW OF SYSTEMS A complete 10-point review of systems was done, which is unremarkable other than as mentioned above. PHYSICAL EXAMINATION VITAL SIGNS: Stable. Looks very anxious. HEENT: Oral mucosa moist. NECK: No JVD. No lymphadenopathy. CHEST: Clear to auscultation bilaterally. CARDIOVASCULAR: Regular rate and rhythm. No murmurs. ABDOMEN: Soft, nontender, and nondistended. EXTREMITIES: Without clubbing, cyanosis, or edema. NEUROLOGIC: Intact. SKIN: Warm and dry. DIAGNOSTIC STUDIES LABORATORY RESULTS: Chemistry showed normal BUN and creatinine, potassium 3.2. LFTs completely normal. Amylase and lipase reported normal. B12, Unit #: [id number] #: [id number] Patient: JONES,KATERINE folate, and TSH were all reported normal recently. Coags are normal. CBC with a hemoglobin, hematocrit, platelet count, and white count are all within normal limits. IMAGING STUDIES: Ultrasound shows bile duct at 7 mm, otherwise unremarkable study. CT scan done just a few weeks ago was noted to be normal, except for an incidental 1.9 cm cyst on the ovary. She had an MRCP and HIDA scan in 2014 for similar symptoms at that time. ASSESSMENT AND PLAN The patient with lot of symptoms including nausea, vomiting, and abdominal pain, very vague presentation, 42-pound weight loss. She is very anxious, not exactly sure of the etiology of her symptoms. Extensive workup including CT, ultrasound, and recent upper and lower scopes have not revealed any major pathology. We will continue with symptomatic treatment for now. Consider HIDA scan with CCK to rule out any gallbladder pathology at this time. May need to be evaluated for endocrine or psychiatric issues. Thank you, Dr. Butler, for this interesting consult. We will follow along. Dictated by... Oswaldo Olvera/jennifer TD: 11/09/2016 13:37 JOB #: [id number] CONSULTATION REPORT Page 1 of 1 X Stevie Omalley MD X CONSULTATION REPORT
--- NOTE | ~2016-11-07 | US67 ---
[facility] A Service of [facility] RADIOLOGY TEXT RESULTS PATIENT: KATERINE GOLDMAN LOCATION: [facility] 577-01 : [birth year] UNIT #: [id number] AGE: [address]: Boy Butler MD SEX: F ORDER DR: [id number] [facility] [address] [facility]. [place], [place] [address] [id number] I MR#: [id number] Acc #: [id number] NAME: KATERINE GOLDMAN : 1980 SEX: F STUDY DATE/TIME: 11/07/2016 22:43 UNIT: CEDOF ROOM: 40893 STUDY DESCRIPTION: US Gallbladder Attending Physician: Boy Butler M.D. Ordering Physician: Alok Hess M.D. Primary Care Physician: Primary Care Physician No MEDICAL IMAGING REPORT This report is preliminary unless electronic signature is present EXAM Gallbladder ultrasound DATE 11/07/2016 HISTORY Nausea, vomiting for one month. Patient states Crohn's disease flare up. COMPARISON CT abdomen and pelvis without contrast 09/29/2016 FINDINGS The pancreas has a unremarkable sonographic appearance. Liver demonstrates normal echotexture without focal or suspicious abnormality. Intrahepatic IVC has an unremarkable muñoz-scale appearance. No free fluid is identified. Liver size is normal measuring 15.3 cm in long axis. Right kidney measures 11.1 cm in length without focal cortical lesion, shadowing stone or hydronephrosis. Common bile duct caliber is slightly above upper limits of normal, 7 mm. no obstructing CBD lesion is identified. The gallbladder is contracted, somewhat limiting its visualization, however, gallbladder wall thickness is within normal limits. No definite gallstones or gallbladder sludge is identification. IMPRESSION 1. Mild common bile duct dilation up to 7 mm. No obstructing etiology is seen and no abnormal intrahepatic biliary or ductal dilation is evident. Gallbladder is contracted, but there is no sonographic evidence of cholecystitis or gallstones. 2. Remainder of the examination is within normal limits. [facility] A Service of [facility] RADIOLOGY TEXT RESULTS PATIENT: KATERINE GOLDMAN LOCATION: [facility] 577-01 : [birth year] UNIT #: [id number] AGE: [address]: Boy Butler MD SEX: F ORDER DR: Dictated by... Louann Ashley M.D. THIS IS AN ELECTRONICALLY VERIFIED REPORT Louann Ashley M.D. at 11/08/2016 9:39 PM [facility]/tiffanie TD: 11/08/2016 15:31 JOB #: [id number] MEDICAL IMAGING REPORT Page 1 of 1 COPY
[2016-11-07 20:49] LABS: BASOPHIL% 0.5 % (0-2.5); EOSINOPHIL# 0.1 X10e3 (0-0.7); EOSINOPHIL% 1.8 % (0.0-7.0); HEMATOCRIT 39.3 % (35.0-45.0); HEMOGLOBIN 13.2 gm/dL (12.0-16.0); LYMPHOCYTE% 30.9 % (17.0-45.0); MEAN CELL VOLUME 92.3 FL (83-96); MEAN CORPUSCULAR HGB CONC 33.6 g/dL (30-36); MEAN PLATELET VOLUME 10.2 FL (6.5-11.5); MONOCYTE# 0.6 X10e3 (0-1.0); MONOCYTE% 9.3 % (3.0-12.0); NEUTROPHIL# 3.6 X10e3 (1.5-7.1); NEUTROPHIL% 57.5 % (40-75); PLATELET COUNT 189 X10e3 (140-420); RED BLOOD COUNT 4.26 X10e (3.90-5.30); RED CELL DISTRIBUTION WIDTH 15.4 % (11.0-15.5); WHITE BLOOD COUNT 6.3 X10e3 (4.0-10.5)
[2016-11-07 20:50] LABS: DIFF IND NO
[2016-11-07 21:03] LABS: PARTIAL THROMBOPLASTIN TIME 25.4 SECONDS (23.5-31.3); PROTHROMBIN TIME (PATIENT) 10.6 SECONDS (10.0-11.7)
[2016-11-07 21:19] LABS: BILIRUBIN, DIRECT 0.1 mg/dL (0.0-0.2); BILIRUBIN,INDIRECT 0.3 mg/dL (0.0-0.9); BILIRUBIN,TOTAL 0.4 mg/dL (0.2-2.0); BUN/CREATININE RATIO 12.85; CALCIUM SERUM 9.7 mg/dL (8.4-10.2); CREATININE SERUM 0.7 mg/dL (0.6-1.4); GLOM FILT RATE Estimated 113.8 mL/min (>60); POTASSIUM 3.3 mmol/L (3.5-5.1); PROTEIN TOTAL SERUM 7.2 g/dL (6.0-8.3)
[2016-11-07 22:33] LABS: AMPHETAMINE POS (NEG); BARBITURATES NEG (NEG); BENZODIAZEPINES NEG (NEG); COCAINE NEG (NEG); MARIJUANA NEG (NEG); OPIATES NEG (NEG); TRICYCLIC ANTIDEPRESSANTS NEG (NEG); U METHADONE NEG (NEG)
[2016-11-08 02:16] LABS: URINE SOURCE CLEAN CATCH
[2016-11-08 02:20] LABS: URINE APPEARANCE TURBID; URINE BILIRUBIN NEG (NEG); URINE BLOOD NEG (NEG); URINE COLOR YELLOW; URINE GLUCOSE NEG (NEG); URINE KETONE TRACE (NEG); URINE LEUKOCYTE ESTERASE NEG (NEG); URINE NITRATE NEG (NEG); URINE PH 7.5 (5-8); URINE PROTEIN NEG (NEG); URINE SPECIFIC GRAVITY 1.025 (1.003-1.035); URINE UROBILINOGEN 0.2 MG/DL (NEG)
[2016-11-08 02:26] LABS: CULTURE INDICATED? NO
[2016-11-08 08:01] LABS: BASOPHIL% 0.8 % (0-2.5); EOSINOPHIL# 0.1 X10e3 (0-0.7); EOSINOPHIL% 2.8 % (0.0-7.0); HEMATOCRIT 36.1 % (35.0-45.0); LYMPHOCYTE# 2.1 X10e3 (1.0-3.5); LYMPHOCYTE% 39.8 % (17.0-45.0); MEAN CELL VOLUME 93.4 FL (83-96); MEAN CORPUSCULAR HGB CONC 33.1 g/dL (30-36); MONOCYTE# 0.5 X10e3 (0-1.0); NEUTROPHIL# 2.5 X10e3 (1.5-7.1); NEUTROPHIL% 46.6 % (40-75); PLATELET COUNT 157 X10e3 (140-420); RED BLOOD COUNT 3.86 X10e (3.90-5.30); RED CELL DISTRIBUTION WIDTH 15.2 % (11.0-15.5); WHITE BLOOD COUNT 5.3 X10e3 (4.0-10.5)
[2016-11-08 08:06] LABS: DIFF IND NO
[2016-11-08 08:27] LABS: CALCIUM SERUM 8.6 mg/dL (8.4-10.2); CREATININE SERUM 0.6 mg/dL (0.6-1.4); GLOM FILT RATE Estimated 119.8 mL/min (>60); POTASSIUM 3.2 mmol/L (3.5-5.1)
[2016-11-08 19:11] LABS: HEMATOCRIT 38.8 % (35.0-45.0); HEMOGLOBIN 12.8 gm/dL (12.0-16.0); MEAN CELL VOLUME 94.1 FL (83-96); MEAN CORPUSCULAR HGB CONC 32.9 g/dL (30-36); MEAN PLATELET VOLUME 9.5 FL (6.5-11.5); RED BLOOD COUNT 4.12 X10e (3.90-5.30); RED CELL DISTRIBUTION WIDTH 15.4 % (11.0-15.5); WHITE BLOOD COUNT 5.5 X10e3 (4.0-10.5)
[2016-11-09 09:16] LABS: HEMATOCRIT 37.5 % (35.0-45.0); HEMOGLOBIN 12.4 gm/dL (12.0-16.0); MEAN CELL VOLUME 93.6 FL (83-96); MEAN CORPUSCULAR HEMOGLOBIN 31.1 PG (28-34); MEAN CORPUSCULAR HGB CONC 33.2 g/dL (30-36); MEAN PLATELET VOLUME 9.7 FL (6.5-11.5); RED CELL DISTRIBUTION WIDTH 15.2 % (11.0-15.5)
[2016-11-09 09:40] LABS: CALCIUM SERUM 8.9 mg/dL (8.4-10.2); CARBON DIOXIDE 27 mmol/L (22-31); CHLORIDE 105 mmol/L (100-111); CREATININE SERUM 0.8 mg/dL (0.6-1.4); GLUCOSE FASTING 80 mg/dL (70-110); POTASSIUM 3.7 mmol/L (3.5-5.1); SODIUM 140 mmol/L (135-145)
[2016-11-09 09:41] LABS: BLOOD UREA NITROGEN <5 mg/dL (9-23); BUN/CREATININE RATIO 6.25
[2016-11-10 05:59] LABS: HEMATOCRIT 37.9 % (35.0-45.0); HEMOGLOBIN 12.6 gm/dL (12.0-16.0); MEAN CELL VOLUME 92.7 FL (83-96); MEAN CORPUSCULAR HEMOGLOBIN 30.9 PG (28-34); MEAN CORPUSCULAR HGB CONC 33.3 g/dL (30-36); MEAN PLATELET VOLUME 9.7 FL (6.5-11.5); RED BLOOD COUNT 4.09 X10e (3.90-5.30); RED CELL DISTRIBUTION WIDTH 15.2 % (11.0-15.5); WHITE BLOOD COUNT 4.9 X10e3 (4.0-10.5)
[2016-11-10 07:02] LABS: BLOOD UREA NITROGEN <5 mg/dL (9-23); BUN/CREATININE RATIO 8.33; CALCIUM SERUM 9.2 mg/dL (8.4-10.2); CARBON DIOXIDE 29 mmol/L (22-31); CHLORIDE 105 mmol/L (100-111); CREATININE SERUM 0.6 mg/dL (0.6-1.4); GLOM FILT RATE Estimated 119.8 mL/min (>60); GLUCOSE FASTING 87 mg/dL (70-110); POTASSIUM 4.5 mmol/L (3.5-5.1); SODIUM 141 mmol/L (135-145)
== END 2016-11-10 15:07 | disposition home or self-care (01) ==
LOC: CED 17:51 → CEDOF 22:15 → C5C 22:19 → CED 22:19 → CEDOF 22:19 → C5C 11-08 16:25 → CEDOF 11-08 16:25 → C5C 11-10 08:26
PROVIDERS: Emergency Medicine; Internal Medicine
DX: R10.9 Unspecified abdominal pain (principal); R11.2 Nausea with vomiting, unspecified; R63.4 Abnormal weight loss; F41.8 Other specified anxiety disorders; G43.909 Migraine, unspecified, not intractable, without status migrainosus; Z88.8 Allergy status to other drugs, medicaments and biological substances; Z90.710 Acquired absence of both cervix and uterus
CPT/HCPCS: 36415; 76705; 80048; 80076; 80307; 81003; 82150; 83690; 84443; 85025; 85027; 85610; 85730; 86677; 96361; 96374; 96375; 96376; 99285; C9113; G0378; J2270; J2550; J2765